=== PATIENT | female | born 1985 | race Caucasian/White ===

== ENCOUNTER 2016-07-30 06:42 | Emergency (ER) | payer MEDICAID ==
[2016-07-30] MEDS ORDERED: KETOROLAC 30 MG/ML 1 ML VIAL IVP STA ×2 (07:19→08:40)
[2016-07-30] MEDS ORDERED: SODIUM CHLORIDE 0.9% 1,000 ML IV STA (07:19)
--- NOTE | 2016-07-30 07:22 | ED ---
Chest Pain HPI - General Chief Complaint: Chest Pain Stated Complaint: Chest pain Time Seen by Provider: 07/30/16 07:00 Source: patient, RN notes reviewed Mode of arrival: wheelchair Limitations: no limitations - History of Present Illness Initial Comments: Is a 30-year-old female with a history of non-Hodgkin's lymphoma which she's had twice last chemo was last September also history of cholecystectomy tonsillectomy and she is a smoker who states she started developing left sided breast pain yesterday for it was very severe sharp burning type pain she denies any fevers chills or sweats she denies any trauma she states her last muscle. Was about 2 weeks ago. She has no cough no prior history of any infections of the breast she does have a port from the chemotherapy which is on the right side of the chest. She denies any drainage or discharge. She has no other complaints at this time such as nausea vomiting she is tearful during the exam. MD Complaint: chest pain - Related Data Home Medications Medication Instructions Recorded Confirmed ALPRAZolam [Xanax] 0.25 mg PO BID PRN 07/30/16 07/30/16 Escitalopram [Lexapro] 20 mg PO DAILY 07/30/16 07/30/16 Zolpidem [Ambien] 5 mg PO HS PRN 07/30/16 07/30/16 buPROPion XL [Wellbutrin Xl] 300 mg PO DAILY 07/30/16 07/30/16 Previous Rx's Medication Instructions Recorded Clindamycin [Cleocin] 300 mg PO Q6H #40 capsule 07/30/16 Ibuprofen [Motrin] 800 mg PO Q6HR PRN #20 tab 07/30/16 Allergies Allergy/AdvReac Type Severity Reaction Status Date / Time levofloxacin [From Levaquin] Allergy Rash/Hives Verified 07/30/16 06:48 Review of Systems ROS Statement: Those systems with pertinent positive or pertinent negative responses have been documented in the HPI. ROS Other: All systems not noted in ROS Statement are negative. Past Medical History Past Medical History: No Reported History History of Any Multi-Drug Resistant Organisms: None Reported Past Surgical History: Cholecystectomy, Tonsillectomy Past Psychological History: Depression Smoking Status: Current every day smoker Past Alcohol Use History: Rare Past Drug Use History: None Reported General Exam - General Exam Comments Initial Comments: This is a well-developed well-nourished awake alert oriented 3 female Limitations: no limitations General appearance: alert, anxious, in distress Head exam: Present: atraumatic, normocephalic, normal inspection Eye exam: Present: normal appearance, PERRL, EOMI. Absent: scleral icterus, conjunctival injection, periorbital swelling ENT exam: Present: normal exam, mucous membranes moist Neck exam: Present: normal inspection. Absent: tenderness, meningismus, lymphadenopathy Respiratory exam: Present: normal lung sounds bilaterally, other (Examination left breast reveals several areas of erythema that are. Area volar. No masses no drainage or discharge. She is mostly tender in the left lower quadrant proximal to the area left. No axillary tenderness no axillary nodes. No tenderness palpation over the costal sternal or costal chondral junctions.). Absent: respiratory distress, wheezes, rales, rhonchi, stridor Cardiovascular Exam: Present: regular rate, normal rhythm, normal heart sounds. Absent: systolic murmur, diastolic murmur, rubs, gallop, clicks GI/Abdominal exam: Present: soft, normal bowel sounds. Absent: distended, tenderness, guarding, rebound, rigid Neurological exam: Present: alert, oriented X3, CN II-XII intact Psychiatric exam: Present: anxious Skin exam: Present: warm, dry, intact Course Vital Signs 07/30/16 06:44 Temperature 99.3 F Pulse Rate 112 H Respiratory 18 Rate Blood Pressure 135/90 O2 Sat by Pulse 100 Oximetry - Reevaluation(s) Reevaluation #1: 07/30/16 09:11 Patient is feeling improved after the initial treatment. Chest Pain MDM - MDM I did review the x-ray report no acute findings did a long discussion with patient regarding the findings the presentation is consistent with an early mastitis. No masses were found. She does feel improved I did discuss the treatment with her she would like to go home and try oral medication she is feeling improved I did recommend close surveillance however. She is return if needed and follow-up with her doctor. Disposition Clinical Impression: Mastitis in female, Leukocytosis Disposition: HOME SELF-CARE Condition: Good Instructions: Mastitis (ED) Prescriptions: Clindamycin [Cleocin] 300 mg PO Q6H #40 capsule Ibuprofen [Motrin] 800 mg PO Q6HR PRN #20 tab PRN Reason: Pain
[2016-07-30] MEDS ORDERED: CLINDAMYCIN 600 MG in DEXTROSE 5% IN WATER 50 ML IVPB STA ×2 (07:24)
[2016-07-30 07:58] LABS: CH 28.6; CHCM 33.1; HCT 48.5 % (34.0-46.0); HDW 2.49; Immature Gran Flag Slight; MCH 28.7 pg (25.0-35.0); MCHC 33.1 g/dL (31.0-37.0); MCV 86.9 fL (80.0-100.0); Mean Platelet Volume 8.3; RBC 5.58 m/uL (3.80-5.40); RDW 13.3 % (11.5-15.5); WBC (Perox) 18.56
[2016-07-30 08:06] LABS: ALT 27 U/L (9-52); AST 19 U/L (14-36); Alkaline Phosphatase 83 U/L (38-126); Anion Gap 14 mmol/L; Blood Urea Nitrogen 15 mg/dL (7-17); Calcium 10.1 mg/dL (8.4-10.2); Carbon Dioxide 24 mmol/L (22-30); Chloride 105 mmol/L (98-107); Glucose 101 mg/dL (74-99); Non-African American GFR(MDRD) >60 (>60 ml/min/1.73 sqM); Potassium 4.8 mmol/L (3.5-5.1); Sodium 143 mmol/L (137-145); Total Bilirubin 0.9 mg/dL (0.2-1.3); Total Protein 7.4 g/dL (6.3-8.2)
[2016-07-30 08:17] LABS: Add Differential Manual Differential
[2016-07-30 08:19] LABS: Manual Review Performed; Nucleated Red Blood Cells 0 /100 WBC (0-0); Total Cells Counted 100
--- NOTE | 2016-07-30 08:48 | XR ---
EXAMINATION TYPE: XR chest 2V DATE OF EXAM: 07/30/2016 8:32 AM COMPARISON: NONE TECHNIQUE: PA and lateral views submitted. HISTORY: Pain FINDINGS: The lungs are clear and there is no pneumothorax, pleural effusion, or focal pneumonia. Tan bhakta noted. IMPRESSION: 1. No acute process.
[2016-07-30 09:26] VITALS: BP 122/58; PULSE 100; RESP 16; TEMP 101.4
[2016-07-30] MEDS ORDERED: ACETAMINOPHEN TAB 500 MG TAB PO STA (09:28)
== END 2016-07-30 09:32 | disposition home or self-care (01) ==
LOC: EC 06:42
DX: N61.0 Mastitis without abscess (principal); D72.829 Elevated white blood cell count, unspecified; F32.9 Major depressive disorder, single episode, unspecified; F17.200 Nicotine dependence, unspecified, uncomplicated; Z88.1 Allergy status to other antibiotic agents; Z79.899 Other long term (current) drug therapy; Z85.72 Personal history of non-Hodgkin lymphomas
CPT/HCPCS: 99285; 96365; 96375; 96376; 96361; 36415; 80053; 85025; 87040; 71020; J1885